=== PATIENT | female | born 1960 | race Caucasian/White ===

== ENCOUNTER 2022-04-20 17:11 | Emergency (ER) | payer OTHER ==
[~2022-04-20] VITALS: Ht 167.6 cm; Wt 81.0 kg
[2022-04-20] MEDS ORDERED: ACETAMINOPHEN 325MG TABLET PO ONE (20:45)
[2022-04-20] MEDS ORDERED: T3 PO (21:45)
[2022-04-20] MEDS ORDERED: IBUP-2029 MT (21:45)
[2022-04-20 22:52] VITALS: BP 141/72
== END 2022-04-20 22:54 | disposition home or self-care (01) ==
LOC: ER 17:11
DX: S92.512A Displaced fracture of proximal phalanx of left lesser toe(s), initial encounter for closed fracture (principal); W22.8XXA Striking against or struck by other objects, initial encounter; M19.072 Primary osteoarthritis, left ankle and foot; I10 Essential (primary) hypertension; Y93.89 Activity, other specified; Y92.89 Other specified places as the place of occurrence of the external cause
CPT/HCPCS: 73630; 99283; Z7610